=== PATIENT | male | born 1985 | race Caucasian/White ===

== ENCOUNTER → 2018-03-13 | Emergency (ER) | payer OTHER ==
[~2018-03-13] VITALS: Ht 172.7 cm; Wt 79.4 kg
[~2018-03-13] MED LIST: VISTARIL50 MG PO
== END | disposition home or self-care (01) ==
LOC: ER 19:38
DX: R20.2 Paresthesia of skin (principal); F06.4 Anxiety disorder due to known physiological condition

== ENCOUNTER 2018-03-16 19:07 | Emergency (ER) | payer OTHER ==
[~2018-03-16] VITALS: Ht 172.7 cm; Wt 70.3 kg
[2018-03-16] MEDS ORDERED: VISTARIL50 MG PO (21:19)
== END 2018-03-16 21:21 | disposition home or self-care (01) ==
LOC: ER 19:07
DX: R00.2 Palpitations (principal); F06.4 Anxiety disorder due to known physiological condition

== ENCOUNTER 2018-06-11 20:10 | Emergency (ER) | payer OTHER ==
[~2018-06-11] VITALS: Ht 172.7 cm; Wt 77.1 kg
== END 2018-06-11 23:46 | disposition home or self-care (01) ==
LOC: ER 20:10
DX: G44.301 Post-traumatic headache, unspecified, intractable (principal); G44.201 Tension-type headache, unspecified, intractable

== ENCOUNTER 2019-06-08 10:26 | Emergency (ER) | payer OTHER ==
[~2019-06-08] VITALS: Ht 172.7 cm; Wt 70.3 kg
[2019-06-08] MEDS ORDERED: ALL DAY ALLERGY10 M1 (10:41)
== END 2019-06-08 18:15 | disposition home or self-care (01) ==
LOC: ER 10:26
DX: R10.32 Left lower quadrant pain (principal); K62.89 Other specified diseases of anus and rectum

== ENCOUNTER 2019-09-24 11:34 | Emergency (ER) | payer OTHER ==
[~2019-09-24] VITALS: Ht 172.7 cm; Wt 70.3 kg
[~2019-09-24 11:34] MED LIST changes: +ALL DAY ALLERGY10 M1
== END 2019-09-24 17:26 | disposition home or self-care (01) ==
LOC: ER 11:34
DX: N45.1 Epididymitis (principal)

== ENCOUNTER 2022-05-08 11:23 | Outpatient (CLI) | payer OTHER | END 2022-05-08 11:38 | disposition home or self-care (01) | LOC: RAD 11:23 | PROVIDERS: ATTEND Orthopaedic Surgery | DX: M25.531 Pain in right wrist (principal); M25.561 Pain in right knee; M25.562 Pain in left knee ==

== ENCOUNTER → 2022-11-23 | Emergency (ER) | payer OTHER ==
[~2022-11-23] VITALS: Ht 172.7 cm; Wt 74.8 kg
== END | disposition home or self-care (01) ==
LOC: ER 20:52
DX: L03.011 Cellulitis of right finger (principal)

== ENCOUNTER 2023-12-10 15:34 | Outpatient (CLI) | payer OTHER | END 2023-12-10 15:43 | disposition home or self-care (01) | LOC: RAD 15:34 | DX: J45.22 Mild intermittent asthma with status asthmaticus (principal); J01.00 Acute maxillary sinusitis, unspecified ==